=== PATIENT | male | born 1975 | race African-American/Black ===

== ENCOUNTER 2024-02-23 01:15 | Emergency (ER) | payer OTHER ==
[~2024-02-23] VITALS: Ht 188 cm; Wt 100.0 kg
[2024-02-23 01:18] VITALS: TEMP 97.9; O2SAT 100
[2024-02-23] MEDS: ONDANSETRON HCL 4MG/2ML INJ IV STA (01:43)
[2024-02-23] MEDS: KETOROLAC 30MG/ML VIAL IV STA (01:43)
[2024-02-23] MEDS: SODIUM CHLORIDE 0.9% 1,000 ML IV ONE (01:45)
[2024-02-23 01:51] LABS: BASOPHILS % 0.5 % (0.0-2.0); EOSINOPHILS % 0.6 % (0.0-5.0); HEMOGLOBIN. 14.2 g/dL (14.0-18.0); LYMPHOCYTES % 21.4 % (20.0-50.0); MEAN CORPUSCULAR HEMOGLOBIN 28.6 pg (28.0-32.0); MEAN CORPUSCULAR VOLUME 86.9 fL (80.0-94.0); MEAN PLATELET VOLUME 8.3 fl (7.4-10.4); NEUTROPHILS % 70.5 % (40.0-76.0); PLATELET 258 x1000/uL (130-400); RED BLOOD CELL COUNT 4.95 mill/uL (4.7-6.1); RED CELL DISTRIBUTION WIDTH 13.6 % (11.6-14.6); WHITE BLOOD COUNT 7.6 x1000/uL (4.5-11.0)
[2024-02-23 01:57] LABS: CARBON DIOXIDE 29 mEq/L (21-32); CHLORIDE 106 mEq/L (98-107); POTASSIUM 3.6 mEq/L (3.5-5.1); SODIUM 141 mEq/L (136-145)
[2024-02-23] MEDS: ONDANSETRON HCL 4MG/2ML INJ IV NR (04:16)
[2024-02-23] MEDS: KETOROLAC 30MG/ML VIAL IV NR (04:16)
[2024-02-23 04:42] LABS: ALANINE AMINOTRANSFERASE 91 IU/L (10-49); ALBUMIN 4.1 g/dL (3.2-4.8); ASPARTATE AMINOTRANSFERASE 165 IU/L (<34); BILIRUBIN DIRECT 0.2 mg/dL (<=3.0); BILIRUBIN TOTAL 0.5 mg/dL (0.1-1.0); CALCIUM 9.3 mg/dL (8.7-10.4); CREATININE 1.2 mg/dL (0.6-1.3); GLUCOSE 110 mg/dL (70-105); PROTEIN TOTAL 7.2 g/dL (6.0-8.3); UREA NITROGEN BLOOD 11 mg/dL (9-23)
[2024-02-23] MEDS ORDERED: IBUP-2029 MT (04:57)
[2024-02-23] MEDS ORDERED: DOCU-138 MT (04:57)
[2024-02-23 05:15] VITALS: BP 108/69; PULSE 80; RESP 18; O2SAT 100
== END 2024-02-23 05:19 | disposition home or self-care (01) ==
LOC: ER 01:25
DX: K52.9 Noninfective gastroenteritis and colitis, unspecified (principal); Z90.49 Acquired absence of other specified parts of digestive tract
CPT/HCPCS: 99285; 74176; 96374; 96361; 96375; 80076; 80048; 83690; 85025; 36415; J1885; J2405; J7030